=== PATIENT | female | born 1990 | race Caucasian/White ===

== ENCOUNTER 2016-03-15 16:48 | Outpatient (CLI) | payer OTHER ==
[2016-03-15 17:38] LABS: AMNISURE (ROM) NEGATIVE (NEGATIVE)
[2016-03-15 17:39] LABS: APPEARANCE,URINE SLIGHTLY-CLOUDY; BILIRUBIN,URINE NEGATIVE (NEGATIVE); GLUCOSE, URINE NEGATIVE (NEGATIVE); KETONES,URINE NEGATIVE (NEGATIVE); LEUKOCYTE ESTERASE,URINE MODERATE (NEGATIVE); NITRITE,URINE NEGATIVE (NEGATIVE); PROTEIN,URINE NEGATIVE (NEGATIVE); URINE SPECIFIC GRAVITY 1.006; UROBILINOGEN,URINE NEGATIVE mg/dL (<2.0)
[2016-03-15 17:57] LABS: URINE BARBITURATES SCREEN NEGATIVE; URINE METHADONE SCREEN NEGATIVE; URINE PHENCYCLIDINE SCREEN NEGATIVE
--- NOTE | 2016-03-15 18:12 | Non Stress Test Report ---
Non Stress Test Datetime Report Generated by CPN: 03/15/2016 18:12 DEMOGRAPHIC EGA NST: 36.0 INDICATION Indication for Study: Other Indication for Study (NST) Other: LC MONITORING Monitor Explained: Monitor Explained; Test Explained; Patient Verbalized Understanding Time on Monitor: 03/15/2016 17:09 NST INTERVENTIONS NST Interventions: PO Hydration Physician Notified NST: Dr. Chau BABY A: [id number] BABY A Movement : Present Contraction Frequency : x0 FHR Baseline : 135 Accelerations : Prolonged Decelerations : None Variability : Moderate 6-25bpm NST Review: Meets Criteria for Reactive NST NST Review and Verified By : A. Christin RN NST Results: Reactive NST REPORT Report Trigger: Send Report
--- NOTE | 2016-03-16 04:47 | L&D Discharge Summary ---
OB Discharge Summary Datetime Report Generated by CPN: 03/16/2016 04:45 DISCHARGE DIAGNOSIS Diagnosis/Symptoms: Other Diagnoses/Symptoms Other: IUP at 36.0 weeks, intact membranes Gestation: 36.0 Number of Babies in Womb: 1 Parity: 1 DIET/ACTIVITY/RESTRICTIONS Diet: Regular Activity: Normal Activity TEACHING/INSTRUCTIONS/REFERRALS Instructions Given To: Patient Instructions Understood: Patient Verbalized Understanding; Support Person Verbalized Understanding Referrals: None Educational Materials- Other: Kick Counts DISCHARGE INFORMATION Discharged AMA: No Discharge Date/Time: 03/15/2016 18:00 Discharged To: Home Discharge Provider Name: Dr. Ritchie Accompanied By: Discharge Method: Ambulatory Condition: Stable FOLLOW UP INFORMATION Follow Up With: [facility] Follow Up On: As Scheduled Follow Up Phone Number: [facility] -
--- NOTE | 2016-03-16 04:47 | L&D General Admission ---
General Admit Datetime Report Generated by CPN: 03/16/2016 04:45 INFORMATION Patient Age: 25 (02/14/2016 17:59:QS system process) EDC: 04/12/2016 00:00 (03/15/2016 16:56:BEN Felix) : 2 (03/15/2016 16:56:BEN Felix) Para: 1 (03/15/2016 18:08:BEN Felix) Para: 1 (03/15/2016 16:56:BEN Felix) Term: 1 (03/15/2016 16:56:BEN Felix) : 0 (03/15/2016 16:56:BEN Felix) Spontaneous Abortions: 0 (03/15/2016 16:56:BEN Felix) Induced Abortions: 0 (03/15/2016 16:56:BEN Felix) Livin (03/15/2016 16:56:BEN Felix) Cesareans: 0 (03/15/2016 16:56:BEN Felix) VBACs: 0 (03/15/2016 16:56:BEN Felix) Ectopic: 0 (03/15/2016 16:56:BEN Felix) Multiple Births: 0 (03/15/2016 16:56:BEN Felix) Baby, Number in Womb: 1 (03/15/2016 18:08:BEN Felix) Baby, Number in Womb: 1 (03/15/2016 16:56:BEN Felix) CARE Primary Train Control Technician: [facility] (03/15/2016 16:56:BEN Felix) Adequate Care: Yes (03/15/2016 16:56:BEN Felix) Height (in): 63 (03/15/2016 17:26:QS system process) ALLERGIES Medication Allergy: Yes (03/15/2016 16:56:BEN Felix) Medication Allergies: No Known Allergies (03/15/2016) (03/15/2016 17:21:QS system process) Latex Allergy: No Latex Allergies (03/15/2016 16:56:Dianalyndon Jacobson [facility]) COMMUNICATION Primary Language: Salvadorean (03/15/2016 16:56:BEN Felix) DEMOGRAPHICS Address: [address] [place] [id number] (03/03/2016 18:03:QS system process) Address: [place] [address] (02/14/2016 17:59:QS system process) Zipcode: [address] (03/03/2016 18:03:QS system process) Zipcode: [address] (02/14/2016 17:59:QS system process) Home (02/14/2016 17:59:QS system process) SSN: [id number] (02/14/2016 17:59:QS system process) Next of Kin Name: GIN ROCHA (03/03/2016 18:03:QS system process) Next of Kin Name: BAN VIVEROS (02/14/2016 17:59:QS system process) Next of Kin (03/03/2016 18:03:QS system process) Next of Kin (02/14/2016 17:59:QS system process) Next of Kin Relationship: SPO (03/03/2016 18:03:QS system process) Next of Kin Relationship: UNK (02/14/2016 17:59:QS system process) Date of : 1990 (02/14/2016 17:59:QS system process) Marital Status: (03/03/2016 18:03:QS system process) Marital Status: Unknown (02/14/2016 17:59:QS system process) Sex: Female (02/14/2016 17:59:QS system process) Race: (03/03/2016 18:03:QS system process) Race: Unknown (02/14/2016 17:59:QS system process) Ethnicity: Non- or (03/03/2016 18:03:QS system process) Ethnicity: Unable to Obtain (02/14/2016 17:59:QS system process) Jain: None (03/03/2016 18:03:QS system process) DRUG AND ALCOHOL USE Alcohol: No (03/15/2016 16:56:BEN Felix) Cigarettes: Never Smoker. [id number] (03/15/2016 16:56:BEN Felix) Marijuana: No (03/15/2016 16:56:BEN Felix) Cocaine: No (03/15/2016 16:56:BEN Felix) Other Illicit Drugs: No (03/15/2016 16:56:BEN Felix) VACCINE HISTORY Influenza Vaccine: Yes (03/15/2016 16:56:BEN Felix) Pneumococcal Vaccine: No (03/15/2016 16:56:BEN Felix) Tetanus Vaccine: Yes (03/15/2016 16:56:BEN Felix) Tdap Vaccine: Yes (03/15/2016 16:56:BEN Felix) Hepatitis B Vaccine: Yes (03/15/2016 16:56:BEN Felix) Feeding Preference: Breast (03/15/2016 16:56:BEN Felix) Benefit of Breast Feed Discussed: Yes (03/15/2016 16:56:BEN Felix) Circumcision: Yes (03/15/2016 16:56:BEN Felix) Classes Attended: No (03/15/2016 16:56:BEN Felix) Tubal Ligation: No (03/15/2016 16:56:BEN Felix) Tubal Authorization Signed: N/A (03/15/2016 16:56:BEN Felix) Consent: N/A (03/15/2016 16:56:BEN Felix) Consent Signed: N/A (03/15/2016 16:56:BEN Felix) Pain Management Plans: None (03/15/2016 16:56:BEN Felix) Plans for Labor and Delivery: None (03/15/2016 16:56:BEN Felix) Support Person: Gin (03/15/2016 16:56:BEN Felix) Support Person Relationship: (03/15/2016 16:56:BEN Felix) Cultural/Spritual Practice: No (03/15/2016 16:56:BEN Felix) Spir/Cult Dietary Needs: No (03/15/2016 16:56:BEN Felix) LIVING SITUATION/DISCHARGE PLAN Living Arrangements: House (03/15/2016 16:56:BEN Felix) Adequate Access to:: Electric; Heat; Refrigeration; Plumbing/Running water; Phone; Transportation (03/15/2016 16:56:BEN Felix) WIC Program: No (03/15/2016 16:56:BEN Felix) Discharge Php Mysql Developer Person: family Gin (03/15/2016 16:56:BEN Felix) Person to Help after Discharge: family Gin (03/15/2016 16:56:BEN Felix) Currently Using Commun Resources: No (03/15/2016 16:56:BEN Felix) Outside Agency/Brake Repairer Hydraulic: Yes (03/15/2016 16:56:BEN Felix) Car Seat for Discharge: Yes (03/15/2016 16:56:BEN Felix) Adoption Requested: No (03/15/2016 16:56:BEN Felix) Pt Contact w/infant Post : N/A (03/15/2016 16:56:BEN Felix) LABS Blood Type: A Negative (03/15/2016 16:56:BEN Felix) Gonorrhea: Negative (03/15/2016 16:56:BEN Felix) Chlamydia: Negative (03/15/2016 16:56:BEN Felix) RPR/VDRL: Nonreactive (03/15/2016 16:56:BEN Felix) Hepatitis B: Negative (03/15/2016 16:56:BEN Felix) Rubella: Immune (03/15/2016 16:56:BEN Felix) OB/PREVIOUS HISTORY History of Previous : No (03/15/2016 16:56:BEN Felix) History of Gestational Diabetes: No (03/15/2016 16:56:BEN Felix) History of PIH: No (03/15/2016 16:56:BEN Felix) History of Incompetent Cervix: No (03/15/2016 16:56:BEN Felix) History of Placenta Previa/Abrup: No (03/15/2016 16:56:BEN Felix) History of Macrosomia: No (03/15/2016 16:56:BEN Felix) History of IUGR: No (03/15/2016 16:56:BEN Felix) History of Hemorrhage: No (03/15/2016 16:56:BEN Felix) History of Loss/Stillborn: No (03/15/2016 16:56:BEN Felix) History of : No (03/15/2016 16:56:BEN Felix) History of D (Rh) Sensitization: No (03/15/2016 16:56:BEN Felix) History Recurrent Loss/Stillborn: No (03/15/2016 16:56:BEN Felix) History Depression/PP Depression: No (03/15/2016 16:56:BEN Felix) History of Uterine Anomaly/THAO: No (03/15/2016 16:56:BEN Felix) History of Infertility: No (03/15/2016 16:56:BEN Felix) History of ART Treatment: No (03/15/2016 16:56:BEN Felix) History of THAO: No (03/15/2016 16:56:BEN Felix) Comments Obstetrical History: G1: 01/15/14, 40 weeks, shoulder dystocia with clavicle fx and dislocated shoulder of G2: current, for P C/S (03/15/2016 16:56:BEN Felix) MEDICAL HISTORY Med Hx Diabetes: No (03/15/2016 16:56:BEN Felix) Med Hx Hypertension: No (03/15/2016 16:56:BEN Felix) Med Hx Heart Disease: No (03/15/2016 16:56:BEN Felix) Med Hx Autoimmune Disorder: No (03/15/2016 16:56:BEN Felix) Med Hx Kidney Disease/UTI: No (03/15/2016 16:56:BEN Felix) Med Hx Neurologic/Epilepsy: No (03/15/2016 16:56:BEN Felix) Med Hx Psychiatric Disorders: No (03/15/2016 16:56:BEN Felix) Med Hx Hepatitis/Liver Disease: No (03/15/2016 16:56:BEN Felix) Med Hx Varicosities/Phlebitis: No (03/15/2016 16:56:BEN Felix) Med Hx Thyroid Dysfunction: No (03/15/2016 16:56:BEN Felix) Med Hx Trauma/Violence: No (03/15/2016 16:56:BEN Felix) Med Hx Blood Transfusion: No (03/15/2016 16:56:BEN Felix) Med Hx Pulmonary (Asthma,TB): No (03/15/2016 16:56:BEN Felix) Med Hx Breast: No (03/15/2016 16:56:BEN Felix) Med Hx LIBRARY CLERICAL ASSISTANT Surgery: No (03/15/2016 16:56:BEN Felix) Med Hx Hospitalization/Surgery: No (03/15/2016 16:56:BEN Felix) Med Hx Anesthetic Complications: No (03/15/2016 16:56:BEN Felix) Med Hx Abnormal Pap Smear: No (03/15/2016 16:56:EBN Felix) Other Medical Diseases: No (03/15/2016 16:56:BEN Felix) Med Hx Significant Family Hx: No (03/15/2016 16:56:BEN Felix) Details of Med/Surg Hx: Appendectomy, oral surgery (03/15/2016 16:56:BEN Felix) INFECTIOUS HISTORY Inf Hx Gonorrhea: No (03/15/2016 16:56:BEN Felix) Inf Hx Chlamydia: No (03/15/2016 16:56:BEN Felix) Inf Hx Syphilis: No (03/15/2016 16:56:BEN eFlix) Inf Hx HIV/AIDS: No (03/15/2016 16:56:BEN Felix) Inf Hx Human Papilloma Virus: No (03/15/2016 16:56:BEN Felix) Inf Hx Pt/Partner Genital Herpes: No (03/15/2016 16:56:BEN Felix) Inf Hx Tuberculosis/Exposure: No (03/15/2016 16:56:BEN Felix) Inf Hx Hepatitis B,C: No (03/15/2016 16:56:BEN Felix) Inf Hx Rash or Viral Illness: No (03/15/2016 16:56:BEN Felix) GENETIC HISTORY Gen Hx Age >=35 at MARAH: No (03/15/2016 16:56:BEN Felix) Gen Hx Thalassemia: No (03/15/2016 16:56:BEN Felix) Gen Hx Congenital Heart Defect: No (03/15/2016 16:56:BEN Felix) Gen Hx Neural Tube Defect: No (03/15/2016 16:56:BEN Felix) Gen Hx Down's Syndrome: No (03/15/2016 16:56:BEN Felix) Gen Hx Jozef-Sachs: No (03/15/2016 16:56:BEN Felix) Gen Hx Tracy: No (03/15/2016 16:56:BEN Felix) Gen Hx Familial Dysautonomia: No (03/15/2016 16:56:BEN Felix) Gen Hx Sickle Cell Disease/Trait: No (03/15/2016 16:56:BEN Felix) Gen Hx Hemophilia/Blood Disorder: No (03/15/2016 16:56:BEN Felix) Gen Hx Muscular Dystrophy: No (03/15/2016 16:56:BEN Felix) Gen Hx Cystic Fibrosis: No (03/15/2016 16:56:BEN Felix) Gen Hx Huntingtons Chorea: No (03/15/2016 16:56:BEN Felix) Gen Hx Mental Retardation/Autism: No (03/15/2016 16:56:BEN Felix) Gen Hx Tested for Fragile X: No (03/15/2016 16:56:BEN Felix) Gen Hx Other Inher/Chromosomal: No (03/15/2016 16:56:BEN Felix) Gen Hx Maternal Metabolic DO: No (03/15/2016 16:56:BEN Felix) Gen Hx Pt Father or FOB Defect: No (03/15/2016 16:56:BEN Felix) Gen Hx Other Genetic History: No (03/15/2016 16:56:BEN Felix) Gen Hx Drugs/Meds since LMP: No (03/15/2016 16:56:BEN Felix)
--- NOTE | 2016-03-16 04:47 | Antepartum Discharge Summary ---
Antepartum DC Datetime Report Generated by CPN: 03/16/2016 04:45 DIET/ACTIVITY/RESTRICTIONS Diet: Regular (03/15/2016 18:08:Diana Jacobson RNC) Activity: Normal Activity (03/15/2016 18:08:Dianakhloe Jacobson, RNC) TEACHING/INSTRUCTIONS/REFERRALS Instructions Given To: Patient (03/15/2016 18:08:BEN Felix) Instructions Understood: Patient Verbalized Understanding; Support Person Verbalized Understanding (03/15/2016 18:08:BEN Felix) Referrals: None (03/15/2016 18:08:BEN Felix) Educational Materials- Other: Kick Counts (03/15/2016 18:08:BEN Felix) DISCHARGE INFORMATION Discharged AMA: No (03/15/2016 18:08:BEN Felix) Discharge Date/Time: 03/15/2016 18:00 (03/15/2016 18:08:BEN Felix) Discharged To: Home (03/15/2016 18:08:BEN Felix) Discharge Provider Name: Dr. Ritchie (03/15/2016 18:08:BEN Felix) Accompanied By: (03/15/2016 18:08:BEN Felix) Discharge Method: Ambulatory (03/15/2016 18:08:BEN Felix) Condition: Stable (03/15/2016 18:08:BEN Felix) FOLLOW UP INFORMATION Follow Up With: [facility] (03/15/2016:08:BEN Felix) Follow Up On: As Scheduled (03/15/2016 18:08:BEN Felix) Follow Up Phone Number: [facility] - (03/15/2016 18:08:BEN Felix)
--- NOTE | 2016-03-16 04:47 | L&D Current Admission ---
Current Admit Datetime Report Generated by CPN: 03/16/2016 04:45 ADMISSION INFORMATION Chief Complaint: Suspected Rupture of Membranes (03/15/2016 17:13:BEN Felix)
--- NOTE | 2016-03-16 04:47 | L&D Admission Assessment ---
LD ADM ASMT Datetime Report Generated by CPN: 03/16/2016 04:45 PATIENT ASSESSMENT Assessment Type: Triage (03/15/2016 17:13:Diana Kavon, RNC) WEIGHT Weight (lb): 220 (03/15/2016 17:26:QS system process) Weight (kg): 100.0 (03/15/2016 17:26:QS system process) PAIN Pain Scale: 0 (03/15/2016 17:13:BEN Felix) Pain Presence: None/Denies (03/15/2016 17:13:BEN Felix) Pain Type: N/A (03/15/2016 17:13:BEN Felix) NEURO Level of Consciousness: Fully Conscious (03/15/2016 17:13:BEN Felix) DTR's/Clonus: DTRs 2+; No Clonus (03/15/2016 17:13:BEN Felix) Headache: Denies (03/15/2016 17:13:BEN Felix) Dizziness: No (03/15/2016 17:13:BEN Felix) Blurred Vision: No (03/15/2016 17:13:BEN Felix) Extremity Numbness/Tingling : None (03/15/2016 17:13:BEN Felix) Extremity Movement: Full Range of Motion (03/15/2016 17:13:BEN Felix) CARDIOVASCULAR Heart Rhythm: Regular (03/15/2016 17:13:BEN Felix) Nailbeds: [place] (03/15/2016 17:13:BEN Felix) Capillary Refill: Less than 3 Seconds (03/15/2016 17:13:BEN Felix) Lower Extremities Edema: None (03/15/2016 17:13:BEN Felix) Upper Extremities Edema: None (03/15/2016 17:13:BEN Felix) Facial Edema: None (03/15/2016 17:13:BEN Felix) RESPIRATORY Respiratory Effort: Unlabored; Regular Rhythm; Equal Expansion (03/15/2016 17:13:BEN Felix) Breath Sounds, Left: Clear and Equal (03/15/2016 17:13:BEN Felix) Breath Sounds, Right: Clear and Equal (03/15/2016 17:13:BEN Felix) Cough Productivity: None (03/15/2016 17:13:BEN Feilx) GASTROINTESTINAL Nausea/Vomiting: Denies (03/15/2016 17:13:BEN Felix) Bowel Sounds: Normoactive; All Quadrants (03/15/2016 17:13:Diana Jacobson RN) RUQ Epigastric Pain: Denies (03/15/2016 17:13:Diana Jacobson [facility]) GENITOURINARY Bladder: Nondistended (03/15/2016 17:13:BEN Felix) Frequency of Urination: No (03/15/2016 17:13:BEN Felix) Urination Burning: No (03/15/2016 17:13:BEN Felix) CVA Tenderness: No (03/15/2016 17:13:BEN Felix) Vaginal Bleeding: None (03/15/2016 17:13:BEN Felix) Vaginal Discharge Color: N/A (03/15/2016 17:13:BEN Felix) INTEGUMENTARY Skin Color: Normal for Race (03/15/2016 17:13:BEN Felix) Skin Temperature: Warm (03/15/2016 17:13:BEN Felix) Skin Moisture: Dry (03/15/2016 17:13:BEN Felix) EMPERATRIZ SKIN ASSESSMENT Emperatriz Scale Sensory Perception: No Impairment- Responds to verbal commands. Has no sensory deficit which would limit ability to feel or voice pain or discomfort (03/15/2016 17:13:BEN Felix) Emperatriz Scale Moisture: Rarely Moist- Skin is usually dry. Linen only requires changing at routine intervals (03/15/2016 17:13:BEN Felix) Emperatriz Scale Activity: Walks Frequently- Walks outside the room at least twice a day and inside room at least every 2 hours during the day. (03/15/2016 17:13:BEN Felix) Emperatriz Scale Mobility: No Limitations- Makes major and frequent changes in position without assistance (03/15/2016 17:13:BEN Felix) Emperatriz Scale Nutrition: Excellent- Eats most of every meal. Never refuses a meal. Usually eats a total of 4 or more servings of meat and dairy products. Occasionally eats between meals. Does not require supplementation (03/15/2016 17:13:BEN Felix) Emperatriz Scale Friction and Shear: No Apparent Problem- Moves in bed and in chair independently and has sufficient muscle strength to lift up completely during move. Maintains good position in bed or chair at all times (03/15/2016 17:13:BEN Felix) Emperatriz Scale Total: 23 (03/15/2016 17:13:QS system process) Emperatriz Scale Risk: No Risk of Pressure Ulcer Noted at this Time (03/15/2016 17:13:QS system process) SUPPORT Family Support: Significant Other supportive, at bedside frequently (03/15/2016 17:13:BEN Felix) Emotional State: Calm/Relaxed (03/15/2016 17:13:BEN Felix) SAFETY Call Art Within Reach: Yes (03/15/2016 17:13:BEN Felix) Side Rails Up: Yes (03/15/2016 17:13:BEN Felix) Bed Wheels Locked: Yes (03/15/2016 17:13:BEN Felix) Arm Bands Present: Yes (03/15/2016 17:13:BEN Felix) FALL SCREEN Fall Risk History of Falling: (0) No (03/15/2016 17:13:BEN Felix) Fall Risk Secondary Diagnosis: (0) No (03/15/2016 17:13:BEN Felix) Fall Risk Ambulatory Aid: (0) None/Bedrest/Wheelchair/Nurse Assist (03/15/2016 17:13:BEN Felix) Fall Risk IV Therapy: (0) No (03/15/2016 17:13:BEN Felix) Fall Risk Gait: (0) Normal/Bedrest/Immobile (03/15/2016 17:13:BEN Felix) Fall Risk Mental Status: (0) Oriented to Own Ability (03/15/2016 17:13:BEN Felix) Fall Risk Score: 0 (03/15/2016 17:13:QS system process) Fall Risk Score Definition: No Risk: No action required (03/15/2016 17:13:QS system process)
--- NOTE | 2016-03-16 04:47 | L&D Flow Sheet ---
LD Flowsheet Datetime Report Generated by CPN: 03/16/2016 04:45 Datetime: 03/15/2016 18:00 Communication Additional Nursing Comments: Pt physically left L_D ambulatory in stable condition (Diana Kavon, RNC) Datetime: 03/15/2016 17:50 Vital Signs NBP Sys/Sanaz/Mean (mmHg): 112 (QS system process) : 62 (QS system process) : 80 (QS system process) Pulse: 93 (QS system process) Assessment A Comments: Monitors removed from abdomen, pt up to RR to change clothes for D/C home. (Diana Kavon, RNC) Datetime: 03/15/2016 17:45 Patient Care Provider Reviewed Strip: Yes (Diana Jacobson, RNC) Notification Reason: Status Update; Status; Labor Status (Diana Jacobson, RNC) Communication Comments: Order for D/C home received from Dr. Chau (Diana Jacobson, RNC) Datetime: 03/15/2016 17:13 Vital Signs NBP Sys/Sanaz/Mean (mmHg): 126 (QS system process) : 66 (QS system process) : 89 (QS system process) Pulse: 93 (QS system process) Pain Pain Scale: 0 (Diana Kavon, RNC) Pain Presence: None/Denies (Diana Kavon, RNC) Pain Type: N/A (Diana Kavon, RNC) Maternal Assessment Level of Consciousness: Fully Conscious (Diana Kavon, RNC) DTR's/Clonus: DTRs 2+; No Clonus (Diana Kavon, RNC) Headache: Denies (Diana Kavon, RNC) Breath Sounds, Left: Clear and Equal (Diana Kavon, RNC) Breath Sounds, Right: Clear and Equal (Diana Kavon, RNC) Nausea/Vomiting: Denies (Diana Kavon, RNC) RUQ Epigastric Pain: Denies (Diana Kavon, RNC) Teaching Instructional Method: Verbal; Patient Instructed; Family/Support Person Instructed; Verbalized Understanding (BEN Felix) Plan of Care: Plan of Care Discussed; Vaginal Delivery; C/S Delivery; Labor; Labor (BEN Felix) Unit Routine: [place] to Room; Call Art; Handwashing; Monitoring; Bathroom Privileges (BEN Felix) Related: Common Discomforts of ; Activity and Rest (BEN Felix)
== END 2016-03-15 18:00 | disposition home or self-care (01) ==
LOC: LC 16:48
PROVIDERS: ATTEND Obstetrics & Gynecology
PROC: 4A1HXCZ Monitoring of Products of Conception, Cardiac Rate, External Approach (ICD-10-PCS; principal; 2016-03-15)
DX: Z34.93 Encounter for supervision of normal pregnancy, unspecified, third trimester (principal); Z36 Encounter for antenatal screening of mother; Z3A.36 36 weeks gestation of pregnancy
CPT/HCPCS: 59025; 80307; 81005; 84112

== ENCOUNTER 2016-04-05 05:10 | Inpatient (IN) | payer OTHER ==
[2016-04-04 10:12] LABS: ABSOLUTE LYMPHOCYTES (AUTO) 1.9 10^3/uL (0.5-4.7); ABSOLUTE MONOCYTES (AUTO) 0.9 10^3/uL (0.1-1.4); ABSOLUTE NEUT (AUTO) 8.4 10^3/uL (1.7-8.2); BASOPHILS % (AUTO) 0.2 % (0-2); EOSINOPHILS % (AUTO) 0.3 % (0-6); HEMATOCRIT 34.9 % (36.0-47.0); HEMOGLOBIN 11.7 g/dL (12.0-15.5); HGB HCT DIFFERENCE 0.2; LYMPHOCYTES % (AUTO) 17.1 % (13-45); MEAN CORPUSCULAR HGB CONC 33.5 g/dL (32.0-36.0); MEAN CORPUSCULAR VOLUME 87 fl (80-97); MONOCYTES % (AUTO) 7.6 % (3-13); RED BLOOD COUNT 4.03 10^6/uL (3.72-5.28); RED CELL DISTRIBUTION WIDTH 13.9 % (11.5-14.0); SEGMENTED NEUTROPHILS % (AUTO) 74.8 % (42-78); WHITE BLOOD COUNT 11.2 10^3/uL (4.0-10.5)
[2016-04-04 10:14] LABS: AMORPHOUS SEDIMENT,URINE TRACE /HPF; APPEARANCE,URINE TURBID; BILIRUBIN,URINE NEGATIVE (NEGATIVE); GLUCOSE, URINE NEGATIVE (NEGATIVE); KETONES,URINE NEGATIVE (NEGATIVE); LEUKOCYTE ESTERASE,URINE SMALL (NEGATIVE); NITRITE,URINE NEGATIVE (NEGATIVE); PROTEIN,URINE NEGATIVE (NEGATIVE); URINE SPECIFIC GRAVITY 1.011; UROBILINOGEN,URINE NEGATIVE mg/dL (<2.0)
[2016-04-04 10:34] LABS: URINE BARBITURATES SCREEN NEGATIVE; URINE METHADONE SCREEN NEGATIVE; URINE OPIATES LOW NEGATIVE; URINE PHENCYCLIDINE SCREEN NEGATIVE
[~2016-04-05 05:10] MED LIST: CEFAZOLIN SODIUM 1 GM in DEXTROSE 5%-WATER 50 ML IV PRN; LACTATED RINGERS 1000 ML IV PRN; LIDOCAINE 0.5% INJ-PF (5 MG/ML) 50 ML SDV SUBCUT PRN; RINGERS SOLUTION,LACTATED 2,000 ML IV PRN
[2016-04-05] MEDS ORDERED: CEFAZOLIN INJ 1 GM VIAL ONE (06:04)
[2016-04-05] MEDS ORDERED: EPHEDRINE SULFATE INJ 50 MG/1 ML AMPULE ONE (07:31)
[2016-04-05] MEDS ORDERED: MIDAZOLAM 2 MG/2 ML INJ ONE (07:31)
[2016-04-05] MEDS ORDERED: OXYTOCIN/NORMAL SALINE 20 UNIT/1,000 ML RTUINJ ONE ×2 (07:31→10:20)
[2016-04-05] MEDS ORDERED: FENTANYL CITRATE INJ/PF 100 MCG/2 ML AMPUL IV PRN ×3 (07:47)
[2016-04-05] MEDS ORDERED: PROMETHAZINE HCL INJ 25 MG/1 ML VIAL IV PRN ×2 (07:47)
[2016-04-05] MEDS ORDERED: MEPERIDINE HCL/PF INJ 25 MG/1 ML DISP.SYRIN IV PRN (07:47)
[2016-04-05] MEDS ORDERED: DIPHENHYDRAMINE HCL 50 MG/ML VIAL IV PRN (07:47)
[2016-04-05] MEDS ORDERED: MORPHINE SULFATE 10 MG/ML INJ IV PRN (07:47)
[2016-04-05] MEDS ORDERED: OXYCODONE-ACETAMINOPHEN 5-325 MG TABLET PO PRN ×3 (07:47→10:13)
[2016-04-05] MEDS ORDERED: KETOROLAC TROMETHAMINE INJ/PF 30 MG/1 ML SDV ONE (09:04)
[2016-04-05] MEDS ORDERED: HYDROMORPHONE HCL INJ/PF 2 MG/ML AMPULE ONE (09:39)
--- NOTE | 2016-04-05 10:00 | L&D Flow Sheet ---
LD Flowsheet Datetime Report Generated by CPN: 04/05/2016 10:00 Datetime: 04/05/2016 09:56 Pulse: 77 (QS system process) SpO2 (%): 96 (QS system process) Datetime: 04/05/2016 09:55 NBP Sys/Sanaz/Mean (mmHg): 128 (QS system process) : 72 (QS system process) : 94 (QS system process) Pulse: 78 (QS system process) Datetime: 04/05/2016 09:51 Pulse: 82 (QS system process) SpO2 (%): 98 (QS system process) Datetime: 04/05/2016 09:50 NBP Sys/Sanaz/Mean (mmHg): 128 (QS system process) : 69 (QS system process) : 92 (QS system process) Pulse: 86 (QS system process) Datetime: 04/05/2016 09:46 Pulse: 83 (QS system process) SpO2 (%): 99 (QS system process) Datetime: 04/05/2016 09:45 Stage of : Recovery (Lydia Smith RN) NBP Sys/Sanaz/Mean (mmHg): 129 (QS system process) : 67 (QS system process) : 92 (QS system process) Pulse: 95 (QS system process) Respirations: 16 (Lydia Smith RN) Pain Scale: 3 (Lydia Smith RN) Pain Presence: Constant (Lydia Smith RN) Pain Type: Burning; Dull (Lydia Smith RN) Pain Location: Abdomen (Lydia Smith RN) Pain Goal: 1 (Lydia Smith RN) Pain Relief Measures: Pain Medication Given; Comfort Measures (Lydia Smith RN) Datetime: 04/05/2016 09:41 Pulse: 74 (QS system process) SpO2 (%): 99 (QS system process) Datetime: 04/05/2016 09:40 NBP Sys/Sanaz/Mean (mmHg): 121 (QS system process) : 63 (QS system process) : 85 (QS system process) Pulse: 75 (QS system process) Datetime: 04/05/2016 09:36 Pulse: 77 (QS system process) SpO2 (%): 99 (QS system process) Datetime: 04/05/2016 09:35 NBP Sys/Sanaz/Mean (mmHg): 131 (QS system process) : 70 (QS system process) : 92 (QS system process) Pulse: 91 (QS system process) Datetime: 04/05/2016 09:31 Pulse: 78 (QS system process) SpO2 (%): 99 (QS system process) Datetime: 04/05/2016 09:30 Stage of : Recovery (Lydia Smith RN) NBP Sys/Sanaz/Mean (mmHg): 123 (QS system process) : 65 (QS system process) : 88 (QS system process) Pulse: 80 (QS system process) Respirations: 16 (Lydia Smith RN) Pain Scale: 1 (Lydia Smith RN) Pain Presence: Intermittent (Lydia Smith RN) Pain Type: Burning; Dull (Lydia Smith RN) Pain Location: Abdomen (Lydia Smith RN) Pain Relief Measures: Comfort Measures (Lydia Smith RN) Datetime: 04/05/2016 09:26 Pulse: 77 (QS system process) SpO2 (%): 98 (QS system process) Datetime: 04/05/2016 09:25 NBP Sys/Sanaz/Mean (mmHg): 125 (QS system process) : 63 (QS system process) : 85 (QS system process) Pulse: 75 (QS system process) Datetime: 04/05/2016 09:21 Pulse: 73 (QS system process) SpO2 (%): 98 (QS system process) Datetime: 04/05/2016 09:20 NBP Sys/Sanaz/Mean (mmHg): 121 (QS system process) : 61 (QS system process) : 84 (QS system process) Pulse: 82 (QS system process) Datetime: 04/05/2016 09:16 Pulse: 84 (QS system process) SpO2 (%): 98 (QS system process) Datetime: 04/05/2016 09:15 Stage of : Recovery (Lydia Smith RN) NBP Sys/Sanaz/Mean (mmHg): 118 (QS system process) : 59 (QS system process) : 85 (QS system process) Pulse: 85 (QS system process) Respirations: 16 (Lydia Smith RN) Pain Scale: 0 (Lydia Leny Roulund, RN) Pain Presence: None/Denies (Lydia Monsivaiselvis Smith, RN) Pain Type: N/A (Lydia Smith, RN) Pain Relief Measures: Comfort Measures (Lydia Monsivaiselvis Smith, RN) Datetime: 04/05/2016 09:12 NBP Sys/Sanaz/Mean (mmHg): 130 (QS system process) : 60 (QS system process) : 87 (QS system process) Pulse: 78 (QS system process) Datetime: 04/05/2016 09:11 Pulse: 80 (QS system process) SpO2 (%): 97 (QS system process) Datetime: 04/05/2016 09:10 NBP Sys/Sanaz/Mean (mmHg): 84 (QS system process) : 53 (QS system process) : 64 (QS system process) Pulse: 41 (QS system process) Pulse: 82 (QS system process) SpO2 (%): 93 (QS system process) Datetime: 04/05/2016 09:07 Stage of : Recovery (Lydia Leny Roulund, RN) Datetime: 04/05/2016 09:06 Pulse: 83 (QS system process) SpO2 (%): 97 (QS system process) Datetime: 04/05/2016 09:05 NBP Sys/Sanaz/Mean (mmHg): 123 (QS system process) : 70 (QS system process) : 91 (QS system process) Pulse: 88 (QS system process) Datetime: 04/05/2016 09:01 Pulse: 86 (QS system process) SpO2 (%): 99 (QS system process) Datetime: 04/05/2016 09:00 Stage of : Recovery (Lydia Smith RN) NBP Sys/Sanaz/Mean (mmHg): 116 (QS system process) : 60 (QS system process) : 82 (QS system process) Pulse: 77 (QS system process) Respirations: 16 (Lydia Smith RN) Pain Scale: 0 (Lydia Smith RN) Pain Presence: None/Denies (Lydia Smith RN) Pain Type: N/A (Lydia Leny Smith, RN) Pain Relief Measures: Comfort Measures (Lydia Smith, RN) Datetime: 04/05/2016 08:59 NBP Sys/Sanaz/Mean (mmHg): 120 (QS system process) : 60 (QS system process) : 84 (QS system process) Pulse: 77 (QS system process) Datetime: 04/05/2016 08:56 Pulse: 92 (QS system process) SpO2 (%): 98 (QS system process) Datetime: 04/05/2016 08:54 NBP Sys/Sanaz/Mean (mmHg): 124 (QS system process) : 60 (QS system process) : 86 (QS system process) Pulse: 87 (QS system process) Datetime: 04/05/2016 08:51 Pulse: 87 (QS system process) SpO2 (%): 98 (QS system process) Datetime: 04/05/2016 08:49 Stage of : Recovery (Lydia Smith RN) NBP Sys/Sanaz/Mean (mmHg): 122 (QS system process) : 60 (QS system process) : 86 (QS system process) Pulse: 94 (QS system process) Respirations: 16 (Lydia Smith RN) Pain Scale: 0 (Lydia Smith RN) Pain Presence: None/Denies (Lydia Smith RN) Pain Type: N/A (Lydia Smith RN) Pain Relief Measures: Comfort Measures (Lydia Smith RN) Datetime: 04/05/2016 08:46 Pulse: 78 (QS system process) SpO2 (%): 98 (QS system process) Datetime: 04/05/2016 08:44 NBP Sys/Sanaz/Mean (mmHg): 124 (QS system process) : 65 (QS system process) : 87 (QS system process) Pulse: 82 (QS system process) Datetime: 04/05/2016 08:41 Pulse: 84 (QS system process) SpO2 (%): 96 (QS system process) Datetime: 04/05/2016 08:39 NBP Sys/Sanaz/Mean (mmHg): 121 (QS system process) : 63 (QS system process) : 86 (QS system process) Pulse: 86 (QS system process) Datetime: 04/05/2016 08:36 Pulse: 87 (QS system process) SpO2 (%): 98 (QS system process) Datetime: 04/05/2016 08:34 Stage of : Recovery (Lydia Smith, DEBRA) NBP Sys/Sanaz/Mean (mmHg): 119 (QS system process) : 58 (QS system process) : 84 (QS system process) Pulse: 89 (QS system process) Respirations: 16 (Lydia Smith RN) Temperature (F): 97.2 (Lydia Smith RN) Temperature (C): 36.2 (QS system process) Temperature Route: Oral (Lydia Smith RN) Pain Scale: 0 (Lydia Smith RN) Pain Presence: None/Denies (Lydia Smith RN) Pain Type: N/A (Lydia Smith RN) Pain Goal: 1 (Lydia Smith RN) Pain Relief Measures: Comfort Measures (Lydia Smith RN) Datetime: 04/05/2016 08:31 Pulse: 89 (QS system process) SpO2 (%): 95 (QS system process) Datetime: 04/05/2016 08:25 Stage of : Recovery (Lydia Smith RN)
[2016-04-05] MEDS ORDERED: MEASLES,MUMPS&RUBELLA VACC/PF 0.5 ML VIAL SUBCUT PRN (10:13)
[2016-04-05] MEDS ORDERED: ACETAMINOPHEN 325 MG TABLET PO PRN (10:13)
[2016-04-05] MEDS ORDERED: SIMETHICONE 80 MG TAB.CHEW PO PRN (10:13)
[2016-04-05] MEDS ORDERED: HYDROMORPHONE HCL INJ/PF 2 MG/ML AMPULE IV PRN (10:13)
[2016-04-05] MEDS ORDERED: DIPH/PERTUSS(ACELL)/TETANUS VAC/PF 0.5 ML SYR (>=10YO) IM PRN (10:13)
[2016-04-05] MEDS ORDERED: OXYTOCIN/NORMAL SALINE 20 UNIT/1,000 ML RTUINJ INJ PRN (10:13)
[2016-04-05] MEDS ORDERED: PROMETHAZINE HCL INJ 25 MG/1 ML VIAL IM PRN (10:13)
[2016-04-05] MEDS ORDERED: RINGERS SOLUTION,LACTATED 1,000 ML IV PRN (10:15)
[2016-04-05] MEDS ORDERED: ONDANSETRON HCL INJ/PF 4 MG/2 ML SDV ONE (10:16)
[2016-04-05] MEDS: OXYCODONE-ACETAMINOPHEN 5-325 MG TABLET PO PRN ×2 (16:04→21:27)
[2016-04-05] MEDS: DOCUSATE SODIUM 100 MG CAPSULE PO SCH (17:41)
[2016-04-05] MEDS: KETOROLAC TROMETHAMINE INJ/PF 30 MG/1 ML SDV IV SCH (17:41)
[2016-04-06] MEDS: KETOROLAC TROMETHAMINE INJ/PF 30 MG/1 ML SDV IV SCH (02:07)
--- NOTE | 2016-04-06 06:00 | L&D Current Admission ---
Current Admit Datetime Report Generated by CPN: 04/06/2016 06:00 ADMISSION INFORMATION Chief Complaint: Suspected Rupture of Membranes (03/15/2016 17:13:BEN Felix)
--- NOTE | 2016-04-06 06:00 | L&D General Admission ---
General Admit Datetime Report Generated by CPN: 04/06/2016 06:00 INFORMATION Patient Age: 25 (02/14/2016 17:59:QS system process) EDC: 04/12/2016 00:00 (03/15/2016 16:56:BEN Felix) : 2 (03/15/2016 16:56:BEN Felix) Para: 1 (03/15/2016 18:08:BEN Felix) Term: 1 (03/15/2016 16:56:BEN Felix) : 0 (03/15/2016 16:56:BEN Felix) Spontaneous Abortions: 0 (03/15/2016 16:56:BEN Felix) Induced Abortions: 0 (03/15/2016 16:56:BEN Felix) Livin (03/15/2016 16:56:BEN Felix) Cesareans: 0 (03/15/2016 16:56:BEN Felix) VBACs: 0 (03/15/2016 16:56:BEN Felix) Ectopic: 0 (03/15/2016 16:56:BEN Felix) Multiple Births: 0 (03/15/2016 16:56:BEN Felix) Baby, Number in Womb: 1 (03/15/2016 18:08:BEN Felix) CARE [facility]reader: [facility] (03/15/2016 16:56:BEN Felix) Adequate Care: Yes (03/15/2016 16:56:BEN Felix) Height (in): 63 (04/05/2016 12:35:QS system process) ALLERGIES Medication Allergy: Yes (03/15/2016 16:56:BEN Felix) Medication Allergies: No Known Allergies (03/15/2016) (03/15/2016 17:21:QS system process) Latex Allergy: No Latex Allergies (03/15/2016 16:56:BEN Felix) COMMUNICATION Primary Language: Marshallese (03/15/2016 16:56:Diana Jacobson [facility]) DEMOGRAPHICS Address: [address] [place] [id number] (03/03/2016 18:03:QS system process) Zipcode: [address] (03/03/2016 18:03:QS system process) Home (02/14/2016 17:59:QS system process) N: [id number] (02/14/2016 17:59:QS system process) Next of Kin Name: GIN ROCHA (03/03/2016 18:03:QS system process) Next of Kin (03/03/2016 18:03:QS system process) Next of Kin Relationship: SPO (03/03/2016 18:03:QS system process) Date of : 1990 (02/14/2016 17:59:QS system process) Marital Status: (03/03/2016 18:03:QS system process) Sex: Female (02/14/2016 17:59:QS system process) Race: (03/03/2016 18:03:QS system process) Ethnicity: Non- or (03/03/2016 18:03:QS system process) Evangelical: None (03/03/2016 18:03:QS system process) DRUG AND ALCOHOL USE Alcohol: No (03/15/2016 16:56:BEN Felix) Cigarettes: Never Smoker. [id number] (03/15/2016 16:56:BEN Felix) Marijuana: No (03/15/2016 16:56:BEN Felix) Cocaine: No (03/15/2016 16:56:BEN Felix) Other Illicit Drugs: No (03/15/2016 16:56:BEN Felix) VACCINE HISTORY Influenza Vaccine: Yes (03/15/2016 16:56:BEN Felix) Pneumococcal Vaccine: No (03/15/2016 16:56:BEN Felix) Tetanus Vaccine: Yes (03/15/2016 16:56:BEN Felix) Tdap Vaccine: Yes (03/15/2016 16:56:BEN Felix) Hepatitis B Vaccine: Yes (03/15/2016 16:56:BEN Felix) Feeding Preference: Breast (03/15/2016 16:56:BEN Felix) Benefit of Breast Feed Discussed: Yes (03/15/2016 16:56:BEN Felix) Circumcision: Yes (03/15/2016 16:56:BEN Felix) Classes Attended: No (03/15/2016 16:56:BEN Felix) Tubal Ligation: No (03/15/2016 16:56:BEN Felix) Tubal Authorization Signed: N/A (03/15/2016 16:56:BEN Felix) Consent: N/A (03/15/2016 16:56:BEN Felix) Consent Signed: N/A (03/15/2016 16:56:BEN Felix) Pain Management Plans: None (03/15/2016 16:56:BEN eFlix) Plans for Labor and Delivery: None (03/15/2016 16:56:BEN Felix) Support Person: Gin (03/15/2016 16:56:BEN Felix) Support Person Relationship: (03/15/2016 16:56:BEN Felix) Cultural/Spritual Practice: No (03/15/2016 16:56:BEN Felix) Spir/Cult Dietary Needs: No (03/15/2016 16:56:BEN Felix) LIVING SITUATION/DISCHARGE PLAN Living Arrangements: House (03/15/2016 16:56:BEN Felix) Adequate Access to:: Electric; Heat; Refrigeration; Plumbing/Running water; Phone; Transportation (03/15/2016 16:56:BEN Felix) WIC Program: No (03/15/2016 16:56:BEN Felix) Discharge Train Director Person: family Gin (03/15/2016 16:56:BEN Felix) Person to Help after Discharge: Ginfamily segundo (03/15/2016 16:56:BEN Felix) Currently Using Commun Resources: No (03/15/2016 16:56:BEN Felix) Outside Agency/Consulting Services Manager: Yes (03/15/2016 16:56:BEN Felix) Car Seat for Discharge: Yes (03/15/2016 16:56:BEN Felix) Adoption Requested: No (03/15/2016 16:56:BEN Felix) Pt Contact w/ Post : N/A (03/15/2016 16:56:BEN Felix) LABS Blood Type: A Negative (03/15/2016 16:56:BEN Felix) Hemoglobin: 11.7 L (04/04/2016 09:16:QS system process) Hematocrit: 34.9 L (04/04/2016 09:16:QS system process) MCV: 87 (04/04/2016 09:16:QS system process) Gonorrhea: Negative (03/15/2016 16:56:BEN Felix) Chlamydia: Negative (03/15/2016 16:56:BEN Felix) RPR/VDRL: Nonreactive (03/15/2016 16:56:BEN Felix) Hepatitis B: Negative (03/15/2016 16:56:BEN Felix) Rubella: Immune (03/15/2016 16:56:BEN Felix) OB/PREVIOUS HISTORY History of Previous : No (03/15/2016 16:56:BEN Felix) History of Gestational Diabetes: No (03/15/2016 16:56:BEN Felix) History of PIH: No (03/15/2016 16:56:BEN Felix) History of Incompetent Cervix: No (03/15/2016 16:56:BEN Felix) History of Placenta Previa/Abrup: No (03/15/2016 16:56:BEN Felix) History of Macrosomia: No (03/15/2016 16:56:BEN Felix) History of IUGR: No (03/15/2016 16:56:BEN Felix) History of Hemorrhage: No (03/15/2016 16:56:BEN Felix) History of Loss/Stillborn: No (03/15/2016 16:56:BEN Felix) History of : No (03/15/2016 16:56:BEN Felix) History of D (Rh) Sensitization: No (03/15/2016 16:56:BEN Felix) History Recurrent Loss/Stillborn: No (03/15/2016 16:56:BEN Felix) History Depression/PP Depression: No (03/15/2016 16:56:BEN Felix) History of Uterine Anomaly/THAO: No (03/15/2016 16:56:BEN Felix) History of Infertility: No (03/15/2016 16:56:BEN Felix) History of ART Treatment: No (03/15/2016 16:56:BEN Felix) History of THAO: No (03/15/2016 16:56:BEN Felix) Comments Obstetrical History: G1: 01/15/14, 40 weeks, shoulder dystocia with clavicle fx and dislocated shoulder of infant G2: current, for P C/S (03/15/2016 16:56:BEN Felix) MEDICAL HISTORY Med Hx Diabetes: No (03/15/2016 16:56:BEN Felix) Med Hx Hypertension: No (03/15/2016 16:56:BEN Felix) Med Hx Heart Disease: No (03/15/2016 16:56:BEN Felix) Med Hx Autoimmune Disorder: No (03/15/2016 16:56:BEN Felix) Med Hx Kidney Disease/UTI: No (03/15/2016 16:56:BEN Felix) Med Hx Neurologic/Epilepsy: No (03/15/2016 16:56:BEN Felix) Med Hx Psychiatric Disorders: No (03/15/2016 16:56:BEN Felix) Med Hx Hepatitis/Liver Disease: No (03/15/2016 16:56:BEN Felix) Med Hx Varicosities/Phlebitis: No (03/15/2016 16:56:BEN Felix) Med Hx Thyroid Dysfunction: No (03/15/2016 16:56:BEN Felix) Med Hx Trauma/Violence: No (03/15/2016 16:56:BEN Felix) Med Hx Blood Transfusion: No (03/15/2016 16:56:BEN Felix) Med Hx Pulmonary (Asthma,TB): No (03/15/2016 16:56:BEN Felix) Med Hx Breast: No (03/15/2016 16:56:BEN Felix) Med Hx TAPE MAKER Surgery: No (03/15/2016 16:56:BEN Felix) Med Hx Hospitalization/Surgery: No (03/15/2016 16:56:BEN Felix) Med Hx Anesthetic Complications: No (03/15/2016 16:56:BEN Felix) Med Hx Abnormal Pap Smear: No (03/15/2016 16:56:BEN Felix) Other Medical Diseases: No (03/15/2016 16:56:BEN Felix) Med Hx Significant Family Hx: No (03/15/2016 16:56:BEN Felix) Details of Med/Surg Hx: Appendectomy, oral surgery (03/15/2016 16:56:BEN Felix) INFECTIOUS HISTORY Inf Hx Gonorrhea: No (03/15/2016 16:56:BEN Felix) Inf Hx Chlamydia: No (03/15/2016 16:56:BEN Felix) Inf Hx Syphilis: No (03/15/2016 16:56:BEN Felix) Inf Hx HIV/AIDS: No (03/15/2016 16:56:BEN Felix) Inf Hx Human Papilloma Virus: No (03/15/2016 16:56:BNE Felix) Inf Hx Pt/Partner Genital Herpes: No (03/15/2016 16:56:BEN Felix) Inf Hx Tuberculosis/Exposure: No (03/15/2016 16:56:BEN Felix) Inf Hx Hepatitis B,C: No (03/15/2016 16:56:BEN Felix) Inf Hx Rash or Viral Illness: No (03/15/2016 16:56:BEN Felix) GENETIC HISTORY Gen Hx Age >=35 at MARAH: No (03/15/2016 16:56:BEN Felix) Gen Hx Thalassemia: No (03/15/2016 16:56:BEN Felix) Gen Hx Congenital Heart Defect: No (03/15/2016 16:56:BEN Felix) Gen Hx Neural Tube Defect: No (03/15/2016 16:56:BEN Felix) Gen Hx Down's Syndrome: No (03/15/2016 16:56:BEN Felix) Gen Hx Jozef-Sachs: No (03/15/2016 16:56:BEN Felix) Gen Hx Tracy: No (03/15/2016 16:56:BEN Felix) Gen Hx Familial Dysautonomia: No (03/15/2016 16:56:BEN Felix) Gen Hx Sickle Cell Disease/Trait: No (03/15/2016 16:56:BEN Felix) Gen Hx Hemophilia/Blood Disorder: No (03/15/2016 16:56:BEN Felix) Gen Hx Muscular Dystrophy: No (03/15/2016 16:56:BEN Felix) Gen Hx Cystic Fibrosis: No (03/15/2016 16:56:BEN Felix) Gen Hx Huntingtons Chorea: No (03/15/2016 16:56:BEN Felix) Gen Hx Mental Retardation/Autism: No (03/15/2016 16:56:BEN Felix) Gen Hx Tested for Fragile X: No (03/15/2016 16:56:BEN Felix) Gen Hx Other Inher/Chromosomal: No (03/15/2016 16:56:BEN Felix) Gen Hx Maternal Metabolic DO: No (03/15/2016 16:56:BEN Felix) Gen Hx Pt Father or FOB Defect: No (03/15/2016 16:56:BEN Felix) Gen Hx Other Genetic History: No (03/15/2016 16:56:BEN Felix) Gen Hx Drugs/Meds since LMP: No (03/15/2016 16:56:BEN Felix)
[2016-04-06 07:43] LABS: HEMATOCRIT 29.3 % (36.0-47.0); HEMOGLOBIN 9.8 g/dL (12.0-15.5); HGB HCT DIFFERENCE 0.1; MEAN CORPUSCULAR HEMOGLOBIN 29.2 pg (27.0-33.4); MEAN CORPUSCULAR HGB CONC 33.4 g/dL (32.0-36.0); MEAN CORPUSCULAR VOLUME 88 fl (80-97); RED BLOOD COUNT 3.34 10^6/uL (3.72-5.28); RED CELL DISTRIBUTION WIDTH 14.2 % (11.5-14.0); WHITE BLOOD COUNT 13.1 10^3/uL (4.0-10.5)
[2016-04-06] MEDS: IBUPROFEN 800 MG TABLET PO SCH ×3 (08:36→20:20)
[2016-04-06] MEDS: OXYCODONE-ACETAMINOPHEN 5-325 MG TABLET PO PRN ×2 (08:37→14:42)
[2016-04-06] MEDS: PRENATAL VITAMIN W-O CA NO5/FE FUMARATE/FA CAPSULE PO SCH (09:26)
[2016-04-06] MEDS: DOCUSATE SODIUM 100 MG CAPSULE PO SCH ×2 (09:26→17:35)
--- NOTE | 2016-04-06 10:02 | PDOC PROGRESS REPORT ---
Subjective-OB Subjective: Post Delivery Day: 25 year old. Denies any needs at this time Physical Exam (OB) Vital Signs: Temp Pulse Resp BP Pulse Ox 98.0 F 100 16 112/69 100 04/06/16 08:22 04/06/16 08:22 04/06/16 08:22 04/06/16 08:22 04/06/16 08:22 Intake & Output 04/05/16 04/06/16 04/07/16 06:59 06:59 06:59 Intake Total 2775 Output Total 2800 Balance -25 Weight 98.43 kg - Dressing Removed: No Incision: Dressing - Lochia Lochia Amount: Small 10-25 ml Lochia Color: Rubra/Red - Abdomen Description: Soft, Round Hernia Present: No Bowel Sounds: Normoactive Flatus Presence: Present Stool: No Fundal Description: Firm, Midline Fundal Height: u/u - u/2 Objective-Diagnostic Laboratory: 04/06/16 07:11 04/06/16 07:11 WBC 13.1 H RBC 3.34 L Hgb 9.8 L Hct 29.3 L MCV 88 MCH 29.2 MCHC 33.4 RDW 14.2 H Plt Count 149 L
[2016-04-07] MEDS: OXYCODONE-ACETAMINOPHEN 5-325 MG TABLET PO PRN (00:13)
[2016-04-07] MEDS: IBUPROFEN 800 MG TABLET PO SCH ×3 (02:30→14:21)
[2016-04-07] MEDS: PRENATAL VITAMIN W-O CA NO5/FE FUMARATE/FA CAPSULE PO SCH (09:24)
[2016-04-07] MEDS: DOCUSATE SODIUM 100 MG CAPSULE PO SCH (09:24)
--- NOTE | 2016-04-07 10:33 | PDOC DISCHARGE SUMMARY ---
Final Diagnosis Discharge Date: 04/07/16 - Final Diagnosis (1) Anxiety with depression Is this a current diagnosis for this admission?: Yes (2) Delivery by elective caesarean section Is this a current diagnosis for this admission?: Yes (3) Is this a current diagnosis for this admission?: Yes Discharge Data - Discharge Medication Home Medications: Comb No.42/Folic Acid [Prena1 Chew Tablet] 1 tab PO DAILY 03/15/16 Reason(s) for Admission: Ceasarean Section-Primary Procedures: None Intrapartum Procedure(s): : Low Cervical, Transverse - Data Baby 1 Male at 1 minute: 8 at 5 minutes: 9 Weight: 3.515 kg Home with Mother: Yes Complications: No - Diagnosis Test Laboratory: Temp Pulse Resp BP Pulse Ox 97.8 F 71 18 116/66 100 04/07/16 08:23 04/07/16 08:23 04/07/16 08:23 04/07/16 07:48 04/07/16 08:23 04/04/16 04/04/16 04/06/16 09:10 09:16 07:11 RBC 4.03 3.34 L Hgb 11.7 L 9.8 L Hct 34.9 L 29.3 L Urine Opiates Screen NEGATIVE - Discharge information/Instructions Discharge Activity: Activity As Tolerated, No Driving, No Lifting Over 10 Pounds , No Lifting/Push/Pulling, Pelvic Rest, No tub bath Discharge Diet: Regular Disposition: HOME, SELF-CARE Follow up with: [facility] in: 1 - follow up for primary c section
[2016-04-07 12:08] VITALS: BP 113/68
--- NOTE | 2016-05-16 13:34 | OPERATIVE REPORT E ---
Operative Report NAME: TERELL ROCHA : 1990 AGE: 25Y DATE OF SURGERY: 04/05/2016 ROOM: 224 PREOPERATIVE DIAGNOSES: 1. A 39 week intrauterine . 2. History of shoulder dystocia. POSTOPERATIVE DIAGNOSES: 1. A 39 week intrauterine . 2. History of shoulder dystocia. SURGEON: Neil Borjas D.O. FOLEY ARTIST: None. PROCEDURE: Primary low-transverse section. ANESTHESIA: Spinal. COMPLICATIONS: None. PATHOLOGY: Placenta. ESTIMATED BLOOD LOSS: 600 mL. FINDINGS: 1. A viable male at 8:06 a.m. on 04/05/2016. Apgars 8 at one 9 at five. Weight pending dictation. 2. Normal uterus, bilateral fallopian tubes, and ovaries. DESCRIPTION OF PROCEDURE: The patient was taken to the operating room, where spinal anesthesia was administered. Once this was done, she was placed in a dorsal supine position with a leftward tilt upon the operating room table. She was then prepped and draped in the normal sterile fashion. A scalpel was then used to make a Pfannenstiel skin incision. The skin incision was carried down through the subcutaneous tissue to the layer of the fascia. The fascia was then incised in the midline. The fascial incision was then extended bilaterally using the Bovie cautery. The superior fascial edge was grasped with Joel clamps, elevated, and the rectus muscles were dissected off sharply and bluntly. Attention was then turned to the inferior fascial edge, which was grasped with Joel clamps, elevated, and the rectus muscles dissected off both sharply and bluntly. The rectus muscles were then in the midline. Peritoneum identified and entered bluntly with the surgeon's hands. A bladder blade was inserted. A scalpel was then used to make a low-transverse hysterotomy incision. The was found to be in cephalic position and delivered through this incision without difficulty and atraumatically. The nose and mouth were suctioned. The cord was clamped and cut and the infant was handed off to the waiting nurses. The placenta was then manually removed from the uterus. The uterus was then exteriorized and cleared of all clots and debris. The hysterotomy incision was then reapproximated using 2 layers of 1-0 Vicryl in a running locking fashion. Following closure of the second layer, excellent hemostasis was noted. The uterus was then returned to the abdomen. Bilateral pericolic gutters were irrigated and again, the hysterotomy incision was reinspected and had excellent hemostasis. The rectus muscles were then reapproximated using 1-0 Vicryl interrupted sutures. The fascia was then closed using a 1-0 Vicryl in a running nonlocking fashion. The subcutaneous space was made hemostatic using Bovie cautery. The skin was then closed with absorbable brayan, covered with an OpSite, ending with a pressure dressing. At this point in time, the procedure was terminated. All sponge, lap, and needle counts were correct x2. The patient tolerated the procedure well. The patient was taken to the recovery room in a stable condition. DICTATING PHYSICIAN: Neil Borjas DO [id number] PHY#: [id number] ID: [id number] JOB#: [id number] ACCT: [id number] cc:Neil Borjas D.O. >
== END 2016-04-07 17:48 | disposition home or self-care (01) | DRG 766 ==
LOC: 2S 05:10
PROVIDERS: ADMIT Obstetrics & Gynecology; ATTEND Obstetrics & Gynecology
PROC: 4A1HXCZ Monitoring of Products of Conception, Cardiac Rate, External Approach (ICD-10-PCS; 2016-04-05)
PROC: 3E0234Z Introduction of Serum, Toxoid and Vaccine into Muscle, Percutaneous Approach (ICD-10-PCS; 2016-04-05)
PROC: 10D00Z1 Extraction of Products of Conception, Low, Open Approach (ICD-10-PCS; principal; 2016-04-05 07:45)
DX: O66.0 Obstructed labor due to shoulder dystocia (principal); O26.893 Other specified pregnancy related conditions, third trimester; O99.344 Other mental disorders complicating childbirth; F41.9 Anxiety disorder, unspecified; F32.9 Major depressive disorder, single episode, unspecified; Z3A.39 39 weeks gestation of pregnancy; Z37.0 Single live birth; Z67.91 Unspecified blood type, Rh negative
CPT/HCPCS: 1961; 36415; 59025; 80307; 81001; 85025; 85027; 85461; 86850; 86900; 86901; 90715; 94799; J0690; J1170; J1885; J2250; J2405; J2590; J2790; J3490; J7120

== ENCOUNTER 2018-05-22 20:56 | Emergency (ER) | payer OTHER ==
[2018-05-22] MEDS ORDERED: IBUPROFEN 800 MG TABLET PO ONE (22:11)
[2018-05-22] MEDS ORDERED: LIDOCAINE 2% VISCOUS SOLN 20 ML UDCUP PO ONE (22:12)
[2018-05-22] MEDS ORDERED: CLINDAMYCIN HCL 150 MG CAPSULE PO ONE (22:58)
--- NOTE | 2018-05-22 22:58 | ER Document Report ---
HPI - HPI Time Seen by Provider: 05/22/18 22:06 Pain Level: 4 Notes: Patient is a 27-year-old female with no significant past medical history aside from poor dentition who presents to the emergency department complaining of left upper dental pain #14 and development of fever. Patient states that the tooth broke a second time 2 weeks ago and since then has had some pain. Patient states that the pain has increased over the last day and she has noticed a fever when she woke up this morning. Patient has not been taking any antipyretics. She does have an appointment with a dentist scheduled next week. The pain does not radiate. She has not noticed any swelling or abscess. She is eating and drinking without any difficulties. She is urinating normally. Denies drug allergies. Denies any headache, head injury, neck pain/stiffness, changes in vision/speech/mentation/hearing, drooling, hoarseness, URI, sore throat, chest pain, palpitations, syncope, cough, shortness of breath, wheeze, dyspnea, abdominal pain, nausea/vomiting/diarrhea, urinary retention, dysuria, hematuria, or rash. - ROS Systems Reviewed and Negative: Yes All other systems reviewed and negative - CONSTITUTIONAL Constitutional: REPORTS: Fever - REPRODUCTIVE Reproductive: DENIES: : Past Medical History - Social History Smoking Status: Current Some Day Smoker Chew tobacco use (# tins/day): No Frequency of alcohol use: None Drug Abuse: None Family History: Reviewed & Not Pertinent Patient has suicidal ideation: No Patient has homicidal ideation: No Renal/ Medical History: Denies: Hx Peritoneal Dialysis GI Medical History: Reports: Hx Gastroesophageal Reflux Disease. Denies: Hx Hiatal Hernia, Hx Ulcer Psychiatric Medical History: Reports: Hx Depression - hx of Denies: Hx Bipolar Disorder, Hx Post Traumatic Stress Disorder, Hx Schizophrenia Vertical Provider Document - CONSTITUTIONAL Agree With Documented VS: Yes Notes: PHYSICAL EXAMINATION: GENERAL: Well-appearing, well-nourished and in no acute distress. HEAD: Atraumatic, normocephalic. EYES: Pupils equal round and reactive to light, extraocular movements intact, sclera anicteric, conjunctiva are normal. ENT: Nares patent and without discharge. oropharynx clear without exudates. No tonsilar hypertrophy or erythema. Moist mucous membranes. No sinus tenderness. Uvula midline. No palatine shift. No tongue protrusion. No respiratory compromise. Mouth: Poor dentition. + severe decay and mild gingivitis. No obvious abscess or discharge noted. No facial swelling. + tenderness to tooth #14. NECK: Normal range of motion, supple without lymphadenopathy. No rigidity/meningismus. Neg Kernig/brudzinski. LUNGS: Breath sounds clear to auscultation bilaterally and equal. No wheezes rales or rhonchi. HEART: Regular rate and rhythm without murmurs, rubs, gallops. NEUROLOGICAL: Cranial nerves grossly intact. Normal speech, normal gait. Normal sensory, motor exams PSYCH: Normal mood, normal affect. SKIN: Warm, Dry, normal turgor, no rashes or lesions noted. - INFECTION CONTROL TRAVEL OUTSIDE OF THE [place] IN LAST 30 DAYS: No Course - Re-evaluation Re-evalutation: 05/22/18 22:55 Patient is well-hydrated 27-year-old female who presents to the ED with fever and dental pain, suspect nerve root etiology/infection. Vitals are acceptable. PE is otherwise unremarkable. No I&D, labs, or imaging warranted at this time based on H&P. Viscous lidocaine dispensed today. I will send her home with a prescription for cleocin with first dose given today. Patient is otherwise nontoxic-appearing and is tolerating p.o. without difficulty. Low suspicion for any meningitis, sepsis, peritonsillar/pharyngeal abscess, respiratory compromise, Hector's, temporal arteritis, or other emergent systemic condition at this time. Patient is aware this condition can change from initial presentation and she needs to monitor symptoms closely. Conservative measures otherwise for symptoms. Keep appointment with dentist. Recheck with your PCM this week as well. Return to the ED with any worsening/concerning symptoms otherwise as reviewed in discharge. Patient is in agreement. - Vital Signs Vital signs: Temp Pulse Resp BP Pulse Ox 101.0 F H 110 H 16 123/76 97 05/22/18 21:09 05/22/18 21:09 05/22/18 21:09 05/22/18 21:09 05/22/18 21:09 Discharge - Discharge Clinical Impression: Pain, dental Fever Qualifiers: Fever type: unspecified Qualified Code(s): R50.9 - Fever, unspecified Condition: Stable Disposition: HOME, SELF-CARE Instructions: Clindamycin ([facility]), Toothache ([facility]) Additional Instructions: [place] and floss twice daily Maintain fluid intake Take antibiotics as directed Mouthwash, salt water gargles, peroxide rinse as needed Tylenol/ibuprofen as needed alternating every 3 hours for fever/pain Recheck with PCM this week Keep appointment with your dentist as scheduled Return to the ED with any worsening symptoms and/or development of fever, headache, facial swelling, swelling of lips/tongue/throat, trouble swallowing, drooling, hoarseness, neck pain/stiffness, chest pain, palpitations, syncope, shortness of breath, trouble breathing, abdominal pain, n/v/d, numbness/tingling, or other worsening symptoms that are concerning to you. Prescriptions: Clindamycin HCl [Cleocin 300 mg Capsule] 300 mg PO QID #40 capsule Forms: Smoking Cessation Education Referrals: DEMETRIO MAE PA [Primary Care Provider] - Follow up as needed [facility] [Provider Group] - Follow up as needed
[2018-05-22 23:07] VITALS: BP 125/77
== END 2018-05-22 23:07 | disposition home or self-care (01) ==
LOC: ER 20:56
DX: K02.9 Dental caries, unspecified (principal); K05.10 Chronic gingivitis, plaque induced; K08.89 Other specified disorders of teeth and supporting structures; R50.9 Fever, unspecified; F17.200 Nicotine dependence, unspecified, uncomplicated
CPT/HCPCS: 99282; J3490